=== PATIENT | female | born 1935 | race Caucasian/White ===

== ENCOUNTER 2017-12-23 12:08 | Inpatient (IN) ==
[2017-12-23] MEDS: SALINE FLUSH 10ml SYRINGE IVF PRN ×3 (12:50→23:36)
--- NOTE | 2017-12-23 13:33 | Emergency Department Report ---
General Adult HPI - General Chief complaint: Medical Emergency Stated complaint: flu like symptoms, R knee Hot, poss septic Time Seen by Provider: 12/23/17 13:33 Source: patient Mode of arrival: ambulatory Limitations: no limitations - History of Present Illness HPI narrative: Patient is an 82-year-old female presents emergency room for evaluation of weakness. 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 Dickson a few days ago, doing well postop. Patient's had one to 2 days of increasing weakness difficulty ambulating and getting around the house. Patient 's had no specific symptoms such as cough shortness of air chest pain dyspnea, does have a history of UTI. On review of systems patient does have some black tarry stool she's had for a week post starting the aspirin post surgery. Patient brought to the ER for evaluation vital signs are within defined limits - Related Data Home Medications Medication Instructions Recorded Confirmed Plavix (clopidogrel) 75 mg tablet 75 mg PO DAILY tab 09/17/17 12/23/17 Pravachol (pravastatin) 40 mg 40 mg PO DAILY tab 09/17/17 12/23/17 tablet cranberry concentrate-ascorbic 1 cap PO DAILY cap 09/17/17 12/23/17 acid 4,200 mg-20 mg capsule multivitamin tablet 1 tab PO QAM 09/17/17 12/23/17 Lisinopril [Prinivil] 10 mg PO DAILY 11/22/17 12/23/17 APAP/Diphenhydramine 500/25 1 tab PO HS 12/23/17 12/23/17 [Tylenol Pm] Previous Rx's Medication Instructions Recorded Acetaminophen [Tylenol] 650 mg PO QID tab 11/28/17 Aspirin *EC* [Ecotrin] 81 mg PO BID tab 11/28/17 Docusate Sodium [Colace] 100 mg PO BID cap 11/28/17 Milk of Magnesia [Mom] 30 ml PO DAILY udc 11/28/17 Naproxen [Aleve] 440 mg PO BID PRN tab 11/28/17 PEG 3350 17gm PACKET [Miralax] 17 gm PO DAILY packet 11/28/17 Scopolamine Patch [TRANSDERM-SCOP 1 each TRANSDERMA Q3D PRN #1 box 11/28/17 1.5 mg EQ] Tramadol [Ultram] 50 - 100 mg PO Q6H PRN #60 tab 11/28/17 Allergies Allergy/AdvReac Type Severity Reaction Status Date / Time cephalexin Allergy Unknown Rash Verified 12/23/17 13:35 ciprofloxacin Allergy Unknown Rash Verified 12/23/17 13:35 Sulfa (Sulfonamide Allergy Unknown Rash Verified 12/23/17 13:35 Antibiotics) Review of Systems Constitutional: Reports: weakness. Denies: fever, chills ENT: Denies: ear pain, throat pain Cardiovascular: Denies: chest pain, palpitations Respiratory: Denies: cough, dyspnea, wheezes Gastrointestinal: Denies: abdominal pain, nausea, vomiting Genitourinary: Denies: urgency, dysuria, frequency Musculoskeletal: Reports: back pain (chronic) Neurological: Denies: headache, weakness Psychiatric: Denies: anxiety, auditory hallucinations Endocrine: Denies: fatigue, heat or cold intolerance PFSH Patient Stated Medical History Diabetes Mellitus Type 1 No Diabetes Mellitus Type 2 No Gastroesophageal Reflux Yes: per h&p- Disease Hx Incontinence Yes: [facility] Medical History (Last Reviewed 12/19/17 @ 09:18 by Angie Ruano MA) Pneumonia (Acute Medical) Arthritis (Chronic Medical) GERD (gastroesophageal reflux disease) (Chronic Medical) High cholesterol (Chronic Medical) HTN (hypertension) (Chronic Medical) Surgical History: hysterectomy; back surgery x3, rt tka 11-27-17 Family History: Family History (Last Reviewed 12/19/17 @ 09:19 by Angie Ruano MA) Mother Arthritis - Social History Smoking status: Former smoker Substance use type: does not use Alcohol intake frequency: does not drink Physical Exam - General General appearance: alert, in no apparent distress - Eye Eye exam: Present: PERRL, EOMI - ENT ENT exam: Present: normal oropharynx, mucous membranes moist, TM's normal bilaterally - Neck Neck exam: Present: full ROM. Absent: trachea midline, tenderness - Chest Chest inspection: Present: symmetric chest wall rise. Absent: tenderness - Respiratory Respiratory exam: Present: normal lung sounds bilaterally. Absent: respiratory distress, wheezes, stridor - Cardiovascular Cardiovascular exam: Present: regular rate, normal rhythm, normal heart sounds - Abdominal Exam Abdominal exam: Present: soft, normal bowel sounds. Absent: distention, tenderness - Extremities Exam Extremities exam: Present: full ROM, tenderness, other (patient does have surgical scar on right knee, no erythema or tenderness to palpation no signs of infection) - Back Exam Back exam: Present: full ROM, tenderness. Absent: CVA tenderness (R), CVA tenderness (L), muscle spasm - Skin Skin exam: Present: warm, dry - Neurological Exam Neurological exam: Present: alert, oriented X3 - Psychiatric Psychiatric exam: Present: normal affect, normal mood Course Vital Signs Temperature 97.6 F 12/23/17 12:13 Pulse Rate 82 12/23/17 12:13 Respiratory Rate 18 12/23/17 12:13 Blood Pressure 102/51 12/23/17 12:13 Pulse Oximetry 100 12/23/17 12:13 Temperature 97.6 F 12/23/17 12:13 Pulse Rate 78 12/23/17 14:04 Respiratory Rate 18 12/23/17 13:30 Blood Pressure 113/56 12/23/17 14:04 Pulse Oximetry 99 12/23/17 14:04 Medical Decision Making - [facility] Narrative Medical decision making narrative: Patient with a hemoglobin of 7.5, does have signs of urinary tract infection. Did discuss case with Dr. Suarez, will admit to the CCU, type and screen has been done we'll give nitrofurantoin for urinary tract infection cultures pending - Medical Records Medical records reviewed: Yes: I reviewed the patient's medical records. - Lab Data Lab results reviewed: Yes: I reviewed the patient's lab results. Result diagrams: 12/23/17 12:55 12/23/17 12:55 Lab Results 12/23/17 12/23/17 12/23/17 Range/Units 12:55 12:55 13:43 WBC 7.4 (4.5-11.0) T/MM3 RBC 2.46 L (4.00-5.20) M/MM3 Hgb 7.5 L (12-16) GM/DL Hct 22.9 L (36-46) % MCV 93.1 (80-100) UM3 MCH 30.5 (26-34) UUG MCHC 32.8 (31-37) GM/DL RDW Std Deviation 49.3 (36.9-50.2) FL Plt Count 353 (130-400) T/MM3 MPV 8.6 L (9.4-12.4) UM3 Immature Gran % (Auto) 0.1 (0.0-0.5) % Neut % (Auto) 68.7 H (33-66) % Lymph % (Auto) 25.0 (23-45) % Hickman % (Auto) 6.1 (0-9.0) % Eos % (Auto) 0.0 (0-4) % Baso % (Auto) 0.1 (0-2) % Neut # (Auto) 5.1 (1.8-7.7) T/MM3 Lymph # (Auto) 1.9 (1-4.8) T/MM3 Hickman # (Auto) 0.5 (0-0.8) T/MM3 Eos # (Auto) 0.0 (0-0.5) T/MM3 Baso # (Auto) 0.0 (0-0.2) T/MM3 Abs Immat Gran (auto) 0.01 (0.00-0.03) T/MM3 Turbidity < 20 (0-20) Sodium 139 (134-144) MEQ/L Potassium 3.8 (3.6-5) MEQ/L Chloride 104 (98-107) MEQ/L Carbon Dioxide 24 (22-30) MEQ/L Anion Gap 11 (5-15) MEQ/L BUN 41.0 H (7-17) MG/DL Creatinine 0.6 L (0.7-1.2) MG/DL GFR Calculation 96 BUN/Creatinine Ratio 68 H (6-26) RATIO Glucose 117 H (65-110) MG/DL Calculated Osmolality 279 (261-280) MOSM/KG Calcium 9.5 (8.4-10.2) MG/DL Total Bilirubin 0.20 (0.20-1.30) MG/DL Icterus Index < 2 (0-7) AST 23 (14-36) U/L ALT 32 (9-52) U/L Alkaline Phosphatase 99 (38-126) U/L Creatine Kinase 33 (30-135) U/L Troponin I < 0.012 (0-0.12) ng/ml Total Protein 6.7 (6.3-8.2) G/DL Albumin 3.8 (3.5-5.0) G/DL Globulin 2.9 (2.4-3.6) G/DL Albumin/Globulin Ratio 1.3 (1.1-2.2) RATIO Specimen Hemolysis < 15 (0-25) Ur Collection Type Urine, void-cc/notcc Urine Color Yellow (YELLOW) Urine Clarity Sl cloudy Urine pH 6.0 (5.0-8.0) Ur Specific [place] 1.010 L (1.015-1.025) Urine Protein Negative (NEGATIVE) Urine Glucose (UA) Negative (NEGATIVE) Urine Ketones Negative (NEGATIVE) Urine Occult Blood Negative (NEGATIVE) Urine Nitrate Positive A (NEGATIVE) Urine Bilirubin Negative (NEGATIVE) Urine Urobilinogen 0.2 (NORMAL) EU/DL Ur Leukocyte Esterase Negative (NEGATIVE) Urine RBC 0-1 (0-3) /HPF Urine WBC 5-10 H (0-5) /HPF Urine WBC Clumps Moderate H Ur Squamous Epith Cells 0-5 Urine Bacteria 4+ H (NEGATIVE) Ur Culture Indicated? Cult reflexed &setup - EKG Data EKG #1 EKG attestation: Yes: I reviewed and interpreted this EKG. EKG shows normal: sinus rhythm Rate: normal Rhythm: NSR Bridgman/QRS: normal Interpretation: no acute changes Disposition Clinical Impression: Anemia Qualifiers: Anemia type: other cause Other causes of anemia: other cause, not classified Qualified Code(s): D64.89 - Other specified anemias Urinary tract infection Qualifiers: Urinary tract infection type: acute cystitis Hematuria presence: without hematuria Qualified Code(s): N30.00 - Acute cystitis without hematuria GI bleed Qualifiers: GI bleed type/associated pathology: unspecified gastrointestinal hemorrhage type Qualified Code(s): K92.2 - Gastrointestinal hemorrhage, unspecified Disposition: 02 To [facility] [place] Care Condition: Stable Prescriptions: No Action Acetaminophen [Tylenol] 650 mg PO QID tab Aspirin *EC* [Ecotrin] 81 mg PO BID tab Docusate Sodium [Colace] 100 mg PO BID cap Milk of Magnesia [Mom] 30 ml PO DAILY udc Naproxen [Aleve] 440 mg PO BID PRN tab PRN Reason: Pain PEG 3350 17gm PACKET [Miralax] 17 gm PO DAILY packet Scopolamine Patch [TRANSDERM-SCOP 1.5 mg EQ] 1 each TRANSDERMA Q3D PRN #1 box PRN Reason: Nausea Tramadol [Ultram] 50 - 100 mg PO Q6H PRN #60 tab PRN Reason: Pain APAP/Diphenhydramine 500/25 [Tylenol Pm] 1 tab PO HS Lisinopril [Prinivil] 10 mg PO DAILY Pravachol (pravastatin) 40 mg tablet 40 mg PO DAILY tab Plavix (clopidogrel) 75 mg tablet 75 mg PO DAILY tab cranberry concentrate-ascorbic acid 4,200 mg-20 mg capsule 1 cap PO DAILY cap multivitamin tablet 1 tab PO QAM Referrals: Lc Jaquez II, MD [Family Provider] - Time of Disposition: 14:30 - Seen By: physician
[2017-12-23] MEDS ORDERED: NS 1,000 ML IV ONE (13:42)
[2017-12-23] MEDS ORDERED: NITROFURANTOIN (MACROBID) 100 MG CAPSULE PO ONE (14:20)
[2017-12-23] MEDS ORDERED: ONDANSETRON 4 MG/2 ML INJECTION IVP PRN (14:58)
[2017-12-23] MEDS ORDERED: NS FLUSH BAG 500ml IV PRN ×3 (15:00→20:09)
[2017-12-23] MEDS ORDERED: DiphenhydrAMINE 25 MG CAPSULE PO ONE ×2 (15:45)
[2017-12-23] MEDS ORDERED: ACETAMINOPHEN 325 MG TABLET PO ONE (15:45)
--- NOTE | 2017-12-23 16:31 | History & Physical Report ---
History of Present Illness Date: 12/23/17 Chief complaint: GI bleed, weakness HPI: Kelly Vogt is a very pleasant patient of Dr. Jaquez who presented to [facility] [place] [place] ED today, 12/23/17, due to complains of significant generalized weakness and near syncope. She is seen immediately upon arrival to ICU #5 with her family present on exam. Extensive review of her prior medical records including ED visit, clinic notes, nursing notes was performed and history was additionally obtained from her family as well as from her. She reports that about 2 days ago she begin to have increasing weakness and generalized fatigue that has progressively gotten worse. She also admits to feeling very lightheaded with near-syncope since last night. She denies any recent fevers, chills or illness. No chest pain, shortness of breath, dyspnea on exertion, abdominal pain, nausea, vomiting, diarrhea or dysuria. Today her fatigue and generalized weakness became so severe that she was having extreme difficulty ambulation around her home and getting to the bathroom, which is very unusual for her. She also reports a sudden change in her stools which she states have been very dark, black and tarry over the past week. She admits to a history of constipation but denies any bright red blood in her stools. Records indicate that she underwent a successful and uncomplicated total right knee replacement on 11/27/[address] Dickson and since that time she states that she has been doing very well until about 2 days ago. Prior to her surgery, she was on Plavix for the past 5 years due to a history of possible TIAs as well as a remote history of blood clots in her legs and lung following a lung surgery 20 years ago. She also states that since her surgery, she has not taken her Plavix as directed by Dr. Dickson and instead has been taking ASA twice daily in addition to Aleeve twice a day and tylenol every 4 hours as needed for pain. She admits to frequently taking ASA 325mg twice a day instead of the ASA 81 mg as directed by Dr. Dickson, just depending on "what's handy" at home. Due to her significant weakness and fatigue, family brought her to the ED for further evaluation. Upon arrival she was noted to have a borderline low blood pressure at 102/51. She has a known history of hypertension and takes lisinopril daily. Labs were obtained and revealed significant anemia with hemoglobin at 7.5 as well as elevated BUN of 41 and was otherwise unremarkable. Hemoglobin prior to discharge after her knee replacement on 11/28/17 was 10.1. She admits to a very remote history of PUD with GERD and hiatal hernia for which she takes Prilosec daily at home. UA was concerning for acute UTI. She denies any dysuria or burning but admits to a history of frequent UTIs. While in the ED, she was given 1L NS and started on Macrobid for antimicrobial treatment of suspected urinary pathogens. Due to her symptomatic anemia with suspected GI bleed, Dr. Suarez was consulted and she was accepted into inpatient status in the ICU for further evaluation, close monitoring of hemodynamic stability and serial hemoglobins. Dr. Price was consulted for surgical evaluation and is expected to proceed with an EGD tomorrow, 12/24/17, pending improvement in her hemoglobin following blood transfusion. Review of Systems All systems PM: 10-point ROS was reviewed, no additional remarkable complaints except - Constitutional Constitutional: Present: fatigue, weakness (generalized). Absent: chills, fever (s), night sweats - EENMT Eyes: Absent: diplopia, photophobia Ears: Absent: ear pain Balance: Absent: falling to one side Nose: Present: nosebleeds (occasional) Mouth/Throat: Present: dry mouth. Absent: sore throat, changes in swallowing - Cardiovascular Cardiovascular: Present: other (near syncope, lightheadedness). Absent: chest pain, palpitations, syncope, dyspnea on exertion, orthopnea, edema Rhythm: Present: regular rhythm Vascular: Absent: pallor of an extermity, pedal edema, unilateral swelling - Respiratory Respiratory: Absent: cough, dyspnea, hemoptysis, dyspnea on exertion, wheezing, pain on inspiration, chest congestion - Gastrointestinal Gastrointestinal: Present: abdominal pain (occasional in epigastric region), change in bowel habits, change in stool character, constipation, dyspepsia, melena. Absent: dysphagia, hematemesis, hematochezia, nausea, vomiting - Genitourinary Genitourinary: Absent: dysuria, flank pain, hematuria Menstruation: post hysterectomy - Musculoskeletal Musculoskeletal: Present: muscle weakness. Absent: abnormal gait, back pain, deformity, limited range of motion - Integumentary/Breasts Integumentary: Absent: rash - Neurological Neurological: Present: dizziness (occasional ), weakness. Absent: abnormal gait , abnormal movements, abnormal speech, confusion, convulsions, focal weakness, frequent falls, headache(s), memory loss, vertigo Neurological Comments: difficulty concentrating. - Psychiatric Psychiatric: Present: abnormal sleep pattern (insomnia). Absent: behavioral changes, depression - Endocrine Endocrine: Absent: flushing, palpitations - Hematologic/Lymphatic Hematologic/Lymphatic: Absent: easy bruising - Allergic/Immunologic Allergic/Immunologic: Absent: seasonal rhinorrhea Past Medical History Clinic Medical History Hypertension. Hyperlipidemia. CAD. CHF, diastolic, grade II/IV. Osteoarthritis. GERD with hiatal hernia. Constipation. Urinary stress incontinence. Insomnia. Chronic back pain due to spinal stenosis. Remote history of blood clots in lung and legs following partial lung lobectomy - ~1997. 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 History of PUD - ~1987. History of pneumonia. History of frequent UTI. Remote history of tobacco use. Surgical History: Right total knee replacement - Dr. Dickson, 11/2017. Hysterectomy - 2009. Laminectomy x 2 - Dr. Dye, 1999; Dr. Aguirre, 2005. Partial left lobectomy, benign nodule - ~1997. Left carotid endartectomy - 2006. Removal of back spur - Dr. Zelaya, 2016. Hernia repair - 2012. Remote history of colonscopy and EGD. Family History Updates: Mother, age 82 - breast cancer, CHF, hypertension, CVA, osteoarthritis. Father, age 75 - lung cancer ( "Burnham's lung"). Sister - CVA. - Social History Smoking status: Former smoker (smoked briefly during her 20's.) Quit date: 11/12/1956 Substance use type: does not use Alcohol intake frequency: does not drink Housing: house Household members: spouse (Salvatore, 62 years.) Current occupational status: retired Does patient use chewing tobacco?: No Current residence: Apartment/Private Home Social history: PCP - Dr. Jaquez. Cardio - Dr. Kumar. Medications Home Medications Medication Instructions Recorded Confirmed Type Plavix (clopidogrel) 75 mg tablet 75 mg PO DAILY tab 09/17/17 12/23/17 History Pravachol (pravastatin) 40 mg 40 mg PO DAILY tab 09/17/17 12/23/17 History tablet cranberry concentrate-ascorbic 1 cap PO DAILY cap 09/17/17 12/23/17 History acid 4,200 mg-20 mg capsule multivitamin tablet 1 tab PO QAM 09/17/17 12/23/17 History Lisinopril [Prinivil] 10 mg PO DAILY 11/22/17 12/23/17 History APAP/Diphenhydramine 500/25 1 tab PO HS 12/23/17 12/23/17 History [Tylenol Pm] Allergies Allergy/AdvReac Type Severity Reaction Status Date / Time cephalexin Allergy Unknown Rash Verified 12/23/17 13:35 ciprofloxacin Allergy Unknown Rash Verified 12/23/17 13:35 Sulfa (Sulfonamide Allergy Unknown Rash Verified 12/23/17 13:35 Antibiotics) Exam Vital Signs: Temperature 97.6 F 12/23/17 12:13 Pulse Rate 84 12/23/17 14:45 Respiratory Rate 18 12/23/17 13:30 Blood Pressure 145/64 H 12/23/17 14:45 Pulse Oximetry 97 12/23/17 15:45 Telemetry Rhythm: Sinus Rhythm Comments: Patient is seen immediately upon her arrival to ICU #5 with her daughter, Meme , at the bedside. - Constitutional Present: no acute distress, well nourished, well developed, thin, cooperative Comments: Very pleasant and appears pale with difficulty concentrating. - Routine HEENT Exam Head: Present: normocephalic, atraumatic Eye: Present: PERRL. Absent: conjunctival icterus ENT: Present: mucous membranes dry, oropharynx clear, dentition normal - Routine Neck Exam Present: supple, full ROM, trachea midline - Routine Chest/Breast/Axilla Exam Chest wall: Absent: tenderness, pacemaker - Routine Respiratory Exam Present: CTA bilaterally. Absent: accessory muscle use, dyspnea, rales, respiratory distress, rhonchi, stridor, wheezes, crackles - Routine Cardiovascular Exam Present: RRR, S1, S2, murmur - Routine Abdominal Exam Present: soft, normoactive bowel sounds, non distended, non tender. Absent: rebound, guarding - Routine Extremities Exam Present: edema (trace), non tender, full ROM, pulses intact. Absent: calf tenderness - Routine Back/Spine/Pelvis Exam Back/Spine: Present: full ROM, kyphosis. Absent: vertebral tenderness - Routine Skin Exam Present: intact, dry, pallor, warm. Absent: jaundice Comments: afebrile. - Routine Neurological Exam Present: alert, oriented X3, moving all extremities, normal speech Questionable left facial droop noted at the mouth though cranial nerves appeared intact; some difficulty concentrating. - Routine Psychiatric Exam Present: normal affect, cooperative Results - Labs CBC & Chem 7: 12/23/17 15:24 12/23/17 12:55 Assessment and Plan (1) Anemia Problem details: symptomatic, present on admission. Current visit: Yes Status: Acute (2) Urinary tract infection Problem details: present on admission. Current visit: Yes Status: Acute (3) GI bleed Problem details: suspected based on clinincal exam and history. Current visit : Yes Status: Acute (4) History of total knee arthroplasty Problem details: 11/27/[address] Dickson. Current visit: Yes Status: Acute Assessment and Plan: Assessment: 82-year-old female patient of Dr. Olson who was admitted through the ED to Dr. Suarez with a 2-day history of significant generalized weakness and foudn to have a hemoglobin of 7.5 with suspected GI bleed following unintentional over use of aspirin, Tylenol and Aleve after right total knee replacement in November [address] Dickson. Acute Medical History Symptomatic anemia (Hgb 7.5) with near syncope, acute - present on admission. Clinical suspicion for GI bleed, acute - present on admission. UTI, acute - present on admission. Borderline hypotension, acute - present on admission. Patient Stated Past Medical History Hypertension. Hyperlipidemia. CAD. CHF, diastolic, grade II/IV. Osteoarthritis. GERD with hiatal hernia. Constipation. Urinary stress incontinence. Insomnia. Chronic back pain due to spinal stenosis. Remote history of blood clots in lung and legs following partial lung lobectomy - ~1997. 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 History of PUD - ~1987. History of pneumonia. History of frequent UTI. Remote history of tobacco use. Plan - 12/23/17 (Admission) Admit to inpatient status in the ICU under the care of Dr. Suarez. Consult Dr. Price for surgical evaluation. Anticipate EGD on 12/24/17. Clear liquid diet now and NPO after midnight in anticipation of surgical procedure on 10/23/18. Monitor closely for hemodynamic stability given significant anemia. Up in room with assist only given high fall risk. Hgb trending down. Hgb 7.5 on admission and decreased to 6.7 - monitor serial hgb closely. Will obtain Hemoccult now. Type, cross and give 2 units of PRBC now. Discussed with patient and family who consent for the procedure. SCDs for DVT prophylaxis. Protonix 40mg IV BID for GERD and GI protection as well as treatment of suspected GI bleed. UA concerning for UTI. Given the patient's extensive list of drug allergies and sensitivities, Macrobid was initiated in the ED. Will continue while awaiting culture and sensitivity. Borderline hypotension on admission (102/51). Monitor and hold home lisinopril 10mg daily if systolic <110. Continue NS 100cc/hr for hydration. Monitor closely for fluid overload - daily weights and urinary output. Encourage incentive spirometry for pulmonary toileting. Patient reported extreme sensitivities to multiple medications causing nausea and dizziness. States scopolamine patch helps with adverse symptoms. Scopolamine patch available as needed. Will continue home medications. Will hold home ASA. Patient has not been taking her home Plavix since prior to surgery in November 2017 and will continue to hold. Upon discharge, patient's care will be returned to her PCP, Dr. Jaquez. At this time, patient requests to be DNR code status. 12/23/2017-7:15 PM-Dr. Suarez I reviewed this chart, the patient history, and the CONCRETE TECHNICIAN's/PA's documented findings as above. We discussed and formulated the assessment and plan as above with the additions below. The patient was seen this evening in her room. She stated she was a little drowsy after receiving Benadryl. She is receiving her first unit of blood at this time. She states that she had had dark black tarry stools for about a week. She has had no abdominal pain. She's had no nausea or vomiting. She was feeling weak for the past couple of days and today she was so weak she didn't think she could get out of bed. She denies having any shortness of breath or chest pain but felt very lightheaded. She denies any lightheadedness now lying down. She denies any shortness of breath. A urinalysis was obtained on admission due to her weakness. She does not have any symptoms of a UTI such as burning with urination or frequency. She does not have a fever or elevated white count. She states she's had UTIs in the past and will notice burning usually. On exam the patient is mildly drowsy. She seems somewhat restless and moves her extremities frequently. She states this is normal for her. She is very pale. She is alert and oriented 3. HEENT reveals pupils to be equal, round and reactive. Sclerae are anicteric. She had some mild right eyelid drooping but she stated she thought that was from lying on that side of her face. This is now resolved. Cranial nerves II through XII are grossly intact. Oropharynx is moist. Neck is supple. Chest is clear to auscultation. Cardiovascular reveals a regular rate and rhythm. Abdomen is soft and nontender. Extremities are free of edema. Skin is pale but warm and dry. Lab work was reviewed. Impression Acute blood loss anemia GI bleed-likely upper Orthostasis and generalized weakness likely secondary to anemia Recent right total knee replacement for which she was on aspirin and Aleve History of peptic ulcer disease Chronic Diastolic heart failure Probable asymptomatic bacteriuria Plan We'll transfuse 2 units now secondary to hemoglobin of 6.7 which is symptomatic. Will stay 2 units ahead on blood. Will obtain serial hemoglobins. I did ask the nurse to call if hemoglobin is less than 8.5 on recheck. We'll have [address] SCDs for DVT prophylaxis. Protonix 80 mg IV followed by Protonix drip. Dr. Price was consulted and he has evaluated the patient and plans for EGD tomorrow. Continue off of NSAIDs. We'll check INR and PTT with next lab draw DC Macrobid at this time. The patient likely has asymptomatic bacteriuria SCDs for DVT prophylaxis DVT Prophylaxis: SCD's GI Prophylaxis: Protonix Resuscitation Status: Do Not Resuscitate - Time spent with patient Time with patient PN: 70 minutes - Physician Narrative Physician: Juliette Suarez MD Narrative: Date: 12/23/17 Time: 1603 Hospital Course Summary Disclaimer: The visit summary below is not to be considered part of the above Progress Note. Hospital Course: Plan - 12/23/17 (Admission) Admit to inpatient status in the ICU under the care of Dr. Suarez. Consult Dr. Price for surgical evaluation. Anticipate EGD on 12/24/17. Clear liquid diet now and NPO after midnight in anticipation of surgical procedure on 10/23/18. Monitor closely for hemodynamic stability given significant anemia. Up in room with assist only given high fall risk. Hgb trending down. Hgb 7.5 on admission and decreased to 6.7 - monitor serial hgb closely. Will obtain Hemoccult now. Type, cross and give 2 units of PRBC now. Discussed with patient and family who consent for the procedure. SCDs for DVT prophylaxis. Protonix 40mg IV BID for GERD and GI protection as well as treatment of suspected GI bleed. UA concerning for UTI. Given the patient's extensive list of drug allergies and sensitivities, Macrobid was initiated in the ED. Will continue while awaiting culture and sensitivity. Borderline hypotension on admission (102/51). Monitor and hold home lisinopril 10mg daily if systolic <110. Continue NS 100cc/hr for hydration. Monitor closely for fluid overload - daily weights and urinary output. Encourage incentive spirometry for pulmonary toileting. Patient reported extreme sensitivities to multiple medications causing nausea and dizziness. States scopolamine patch helps with adverse symptoms. Scopolamine patch available as needed. Will continue home medications. Will hold home ASA. Patient has not been taking her home Plavix since prior to surgery in November 2017 and will continue to hold. Upon discharge, patient's care will be returned to her PCP, Dr. Jaquez. At this time, patient requests to be DNR code status.
[2017-12-23] MEDS ORDERED: ACETAMINOPHEN 325 MG TABLET PO SCH (17:00)
[2017-12-23] MEDS ORDERED: SCOPOLAMINE 1mg/3 days PATCH TD PRN (17:10)
[2017-12-23] MEDS ORDERED: SCOPOLAMINE PATCH REMOVAL TD ONE (17:10)
[2017-12-23] MEDS ORDERED: PANTOPRAZOLE 40 MG INJECTION IVP SCH (17:15)
[2017-12-23] MEDS ORDERED: PANTOPRAZOLE 40 MG INJECTION IVP ONE (17:41)
[2017-12-23] MEDS: PANTOPRAZOLE IV 80 MG in NS 250ml 250 ML IV SCH (19:51)
[2017-12-23] MEDS ORDERED: ACETAMINOPHEN 325 MG TABLET PO PRN (20:32)
[2017-12-23 20:34] VITALS: BMI 22.4
[2017-12-23] MEDS ORDERED: NITROFURANTOIN (MACROBID) 100 MG CAPSULE PO SCH (21:00)
[2017-12-23] MEDS: NS 1,000 ML IV SCH (22:36)
[2017-12-23] MEDS: MORPHINE SULFATE 2mg INJECTION IVP PRN (23:35)
[2017-12-24] MEDS: PANTOPRAZOLE IV 80 MG in NS 250ml 250 ML IV SCH ×2 (04:49→16:03)
[2017-12-24] MEDS: NS 1,000 ML IV SCH ×3 (06:20→16:26)
[2017-12-24] MEDS ORDERED: LISINOPRIL 10 MG TABLET PO SCH (09:00)
--- NOTE | 2017-12-24 09:11 | Progress Note ---
- Date 12/24/17 Subjective: The patient was seen this morning in her room accompanied by her daughter. The patient states she wants her daughter to make medical decisions for her if she cannot make them herself. Patient states she's feeling better today. She feels stronger. She is not lightheaded this morning. She has not had any shortness of breath or chest discomfort with this episode of GI bleed. She does state that she chronically has some indigestion and feels like she cannot eat very much and relates this to a hiatal hernia. She has not lost any weight. She does complain of chronic back pain and states that she would like to get up and move around more. She does use a heating pad at home. Objective Vital signs: Temperature 98.4 F 12/24/17 08:00 Pulse Rate 73 12/24/17 08:00 Respiratory Rate 16 12/24/17 08:00 Blood Pressure 156/69 H 12/24/17 08:00 Pulse Oximetry 97 12/24/17 08:00 Height/Weight/BMI: Height 1.63 m Weight 60.3 kg Body Mass Index 22.4 Comments: Blood pressure is 144/65, heart rate 69, O2 sat is in the mid 90s on room air GEN-alert, oriented, no acute distress HEENT-sclera anicteric, oropharynx is moist NECK-supple CV-regular rate and rhythm CHEST-clear to auscultation bilaterally ABD-soft, nontender, nondistended with positive bowel sounds -no Draper EXT-no edema NEURO-no focal deficits SKIN-warm and dry without rashes Results - Labs CBC & Chem 7: 12/24/17 04:40 12/24/17 04:40 Labs: PTT and INR were normal Assessment and Plan (1) Anemia Problem details: symptomatic, present on admission. Current visit: Yes Status: Acute (2) Urinary tract infection Problem details: present on admission. Current visit: Yes Status: Acute (3) GI bleed Problem details: suspected based on clinincal exam and history. Current visit : Yes Status: Acute (4) History of total knee arthroplasty Problem details: 11/27/[address] Dickson. Current visit: Yes Status: Acute Assessment and Plan: Acute Medical History Symptomatic anemia (Hgb 7.5) with near syncope, acute - present on admission. Hemoglobin is 8.2 post 2 units of blood Clinical suspicion for upper GI bleed, acute - present on admission. Asymptomatic bacteriuria Borderline hypotension, acute - present on admission.-Resolved Patient Stated Past Medical History Hypertension. Hyperlipidemia. CAD. CHF, diastolic, grade II/IV. Osteoarthritis. GERD with hiatal hernia. Constipation. Urinary stress incontinence. Insomnia. Chronic back pain due to spinal stenosis. Remote history of blood clots in lung and legs following partial lung lobectomy - ~1997. 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 History of PUD - ~1987. History of pneumonia. History of frequent UTI. Remote history of tobacco use. Plan - 12/24/17 Overall, patient is doing well. She had 2 units of blood yesterday and is 8.2 today. Blood pressure and heart rate are normal. She feels better today and is no longer lightheaded with standing. She did not have any stools overnight. She states she gets nauseated easily with anesthetics and would like to try scopolamine patch to prevent problems with her procedure today. We'll go ahead and order scopolamine patch. Continue Protonix drip EGD later today Continue to monitor every 6 hours hemoglobin Macrobid was discontinued. She seems to have asymptomatic bacteria. Remain off of NSAIDs. Discussed with the patient's daughter and . Patient would like her daughter to make medical decisions for her she cannot make them herself. DVT Prophylaxis: SCD's GI Prophylaxis: Protonix - Time spent with patient Time with patient PN: 35 minutes - Physician Narrative Narrative: Date: 12/24/17 Time: 0906 Hospital Course Summary Disclaimer: The visit summary below is not to be considered part of the above Progress Note. Hospital Course: Plan - 12/23/17 (Admission) Admit to inpatient status in the ICU under the care of Dr. Suarez. Consult Dr. Price for surgical evaluation. Anticipate EGD on 12/24/17. Clear liquid diet now and NPO after midnight in anticipation of surgical procedure on 10/23/18. Monitor closely for hemodynamic stability given significant anemia. Up in room with assist only given high fall risk. Hgb trending down. Hgb 7.5 on admission and decreased to 6.7 - monitor serial hgb closely. Will obtain Hemoccult now. Type, cross and give 2 units of PRBC now. Discussed with patient and family who consent for the procedure. SCDs for DVT prophylaxis. Protonix 40mg IV BID for GERD and GI protection as well as treatment of suspected GI bleed. UA concerning for UTI. Given the patient's extensive list of drug allergies and sensitivities, Macrobid was initiated in the ED. Will continue while awaiting culture and sensitivity. Borderline hypotension on admission (102/51). Monitor and hold home lisinopril 10mg daily if systolic <110. Continue NS 100cc/hr for hydration. Monitor closely for fluid overload - daily weights and urinary output. Encourage incentive spirometry for pulmonary toileting. Patient reported extreme sensitivities to multiple medications causing nausea and dizziness. States scopolamine patch helps with adverse symptoms. Scopolamine patch available as needed. Will continue home medications. Will hold home ASA. Patient has not been taking her home Plavix since prior to surgery in November 2017 and will continue to hold. Upon discharge, patient's care will be returned to her PCP, Dr. Jaquez. At this time, patient requests to be DNR code status. Impression Acute blood loss anemia GI bleed-likely upper Orthostasis and generalized weakness likely secondary to anemia Recent right total knee replacement for which she was on aspirin and Aleve History of peptic ulcer disease Chronic Diastolic heart failure Probable asymptomatic bacteriuria Plan We'll transfuse 2 units now secondary to hemoglobin of 6.7 which is symptomatic. Will stay 2 units ahead on blood. Will obtain serial hemoglobins. I did ask the nurse to call if hemoglobin is less than 8.5 on recheck. We'll have [address] SCDs for DVT prophylaxis. Protonix 80 mg IV followed by Protonix drip. Dr. Price was consulted and he has evaluated the patient and plans for EGD tomorrow. Continue off of NSAIDs. We'll check INR and PTT with next lab draw DC Macrobid at this time. The patient likely has asymptomatic bacteriuria SCDs for DVT prophylaxis
[2017-12-24] MEDS ORDERED: SCOPOLAMINE 1mg/3 days PATCH TD SCH (09:15)
[2017-12-24] MEDS: PRAVASTATIN 40 MG TABLET PO SCH (10:22)
[2017-12-24] MEDS: MORPHINE SULFATE 2mg INJECTION IVP PRN (13:13)
[2017-12-24] MEDS: SALINE FLUSH 10ml SYRINGE IVF PRN ×2 (13:14→23:50)
[2017-12-24] MEDS ORDERED: LIDOCAINE VISCOUS 2% ORAL LIQUID 15ml ONE (13:18)
--- NOTE | 2017-12-24 13:24 | Anesthesia Preoperative Report ---
Anesthesia Preoperative Record - Date and Time Date: 12/24/17 Preoperative Diagnosis: GI Bleed Proposed Procedure: EGD NPO Since Date: 12/23/17 NPO Since Time: 23:00 Allergies/Adverse Reactions: Allergies Allergy/AdvReac Type Severity Reaction Status Date / Time cephalexin Allergy Unknown Rash Verified 12/23/17 13:35 ciprofloxacin Allergy Unknown Rash Verified 12/23/17 13:35 Sulfa (Sulfonamide Allergy Unknown Rash Verified 12/23/17 13:35 Antibiotics) - Vital Signs Vital Signs: Temperature 98.4 F 12/24/17 08:00 Pulse Rate 74 12/24/17 11:15 Respiratory Rate 22 12/24/17 11:15 Blood Pressure 155/68 H 12/24/17 11:00 Pulse Oximetry 98 12/24/17 11:15 Height and Weight: Height 1.63 m Weight 60.3 kg Body Mass Index 22.4 - Medications Inpatient Medications: Current Medications Acetaminophen (Tylenol) 650 mg PO PRN PRN PRN Reason: Pain Sodium Chloride (Normal Saline) 1,000 mls @ 100 mls/hr IV .Q10H DAVIDE Last Admin: 12/24/17 08:54 Dose: 100 mls/hr Pantoprazole Sodium 80 mg/ (Sodium Chloride) 250 mls @ 25 mls/hr IV .Q10H DAVIDE PRN Reason: 8 MG/HR Last Infusion: 12/24/17 07:00 Dose: 8 mg/hr, 25 mls/hr Lorazepam (Ativan Inj) 0.5 mg IVP Q6H PRN Morphine Sulfate (Morphine Sulfate Inj) 1 - 2 mg IVP Q2H PRN PRN Reason: Pain Last Admin: 12/24/17 13:13 Dose: 2 mg Ondansetron HCl (Zofran) 4 mg IVP Q6H PRN PRN Reason: Nausea Last Admin: 12/23/17 23:38 Dose: 4 mg Pravastatin Sodium (Pravachol) 40 mg PO DAILY DAVIDE Last Admin: 12/24/17 10:22 Dose: Not Given Scopolamine (Transderm-Scop Patch Removal) 1 removal TD Q3D DAVIDE Stop: 12/27/17 09:16 Sodium Chloride (Iv Flush) 10 - 80 ml IVF PRN PRN PRN Reason: Flushing Last Admin: 12/24/17 13:14 Dose: 10 ml Sodium Chloride (Normal Saline) 500 ml IV PRN PRN Sodium Chloride (Normal Saline) 500 ml IV PRN PRN Sodium Chloride (Normal Saline) 500 ml IV PRN PRN Last Admin: 12/23/17 20:15 Dose: 500 ml Home Medications: Home Medications Medication Instructions Recorded Confirmed Type Plavix (clopidogrel) 75 mg tablet 75 mg PO DAILY tab 09/17/17 12/23/17 History Pravachol (pravastatin) 40 mg 40 mg PO DAILY tab 09/17/17 12/23/17 History tablet cranberry concentrate-ascorbic 1 cap PO DAILY cap 09/17/17 12/23/17 History acid 4,200 mg-20 mg capsule multivitamin tablet 1 tab PO QAM 09/17/17 12/23/17 History Lisinopril [Prinivil] 10 mg PO DAILY 11/22/17 12/23/17 History APAP/Diphenhydramine 500/25 1 tab PO HS 12/23/17 12/23/17 History [Tylenol Pm] - Medical History Cardiovascular: Reports: Hypertension Gastrointestional: Reports: Gastroesophageal Reflux Disease (per h&p- ) Neuro/Musculoskeletal: Reports: Other (had TIA years ago, no residual problems) Renal/Endocrine: DENIES: Diabetes Mellitus Type 1, Diabetes Mellitus Type 2, Renal Failure, Dialysis, Thyroid Disease, Weight Loss, Weight Gain, Other - Surgical History HEENT Surgeries: Reports: Other (BILAT CATARACT REMOVAL) Cardiac Surgeries/Treatments: Reports: Other (carotid endardectomy ) Surgery/Treatment: DENIES: Dialysis Musculoskeletal Surgery/Tx: Reports: Orthopedic Surgery (3 back surgeries), Total Knee Replacement (11/2017) Reproductive Surgery/Treatment: Reports: Hysterectomy Anesthesia Reactions: Nausea and Vomiting Hx Family Anesthesia Reaction: No - Social History Smoking Status: Former smoker (smoked briefly during her 20's.) Hx Chewing Tobacco Use: No Quit Date: 11/12/1956 Substance Use Type: does not use Alcohol Intake Frequency: does not drink - Pertinent Findings Laboratory: CBC and BMP 12/24/17 04:40 12/24/17 04:40 BMP 12/24/17 04:40 Sodium 141 Potassium 3.7 Chloride 112 H D Carbon Dioxide 23 BUN 25.0 H Creatinine 0.6 L Glucose 88 Calcium 8.5 D EKG: Sinus Rhythm - Physical Exam Respiratory Exam: Present: lungs clear, bilateral breath sounds equal Cardiovascular Exam: Present: regular rate and rhythm, no murmur - Airway Assessment Mallampati Score: II TMD: 3 Fingerbreadths Neck Extension: good Overall Assessment: no airway concerns - ASA ASA Score: 3 - Plan Anesthesia: General TIVA, Neuroaxial Regional/Trunk Block: Spinal - Discussion Discussion: Discussed risks/options/alternatives of anesthesia and questions answered. Patient consents. Nursing pain assessment noted. Attestation Statement: Prior to the delivery of any anesthetic medication, I examined the patient, developed the plan, obtained the patient's consent and discussed the risk and benefits of the procedure with the patient/guardian. - Additional Information Seen by Anesthesia: Yes
[2017-12-24] MEDS ORDERED: PROPOFOL 20 ML ONE ×2 (13:35→13:55)
[2017-12-24] MEDS ORDERED: LIDOCAINE 2% (100mg/5mL) PF 5ml vl ONE (13:35)
--- NOTE | 2017-12-24 14:19 | Anesthesia Postoperative Note ---
- Date and Time Date: 12/24/17 Time: 14:18 - Status Patient Participated in Evaluation: Patient Participated in Person Vital Signs: Temperature 97.4 F 12/24/17 14:01 Pulse Rate 76 12/24/17 14:15 Respiratory Rate 14 12/24/17 14:15 Blood Pressure 143/68 H 12/24/17 14:15 Pulse Oximetry 98 12/24/17 14:15 Respiratory Function: Airway Patent, Regular Respirations Cardiovascular Function: Regular Pulse Mental Status: Alert and Oriented Pain Intensity: 0 Hydration: IV Infusing Complications During Recover: None Apparent - Follow-Up Instructions Instructions: Per Surgeon
--- NOTE | 2017-12-24 14:38 | General Surgery Procedure Note ---
Date of Procedure: 12/24/17 Surgeon: Dee Anesthesia: General TIVA ASA Score: 3 Postoperative Diagnosis: Gastritis with small ulcerations. Distal esophagitis with ulceration Procedure: Esophagogastroduodenoscopy with biopsies
[2017-12-24] MEDS: SUCRALFATE 1 GM TABLET PO SCH ×2 (17:35→20:09)
[2017-12-25] MEDS: MORPHINE SULFATE 2mg INJECTION IVP PRN ×3 (02:01→14:36)
[2017-12-25] MEDS: PANTOPRAZOLE IV 80 MG in NS 250ml 250 ML IV SCH ×2 (02:40→11:10)
[2017-12-25] MEDS ORDERED: CEFTRIAXONE 1 G in NS 100 ML IV SCH (04:45)
[2017-12-25] MEDS: SALINE FLUSH 10ml SYRINGE IVF PRN ×2 (04:57→14:37)
[2017-12-25] MEDS ORDERED: CEFTRIAXONE 1 G in NS 50 ML IV SCH (06:00)
[2017-12-25] MEDS: SUCRALFATE 1 GM TABLET PO SCH ×4 (06:51→22:40)
[2017-12-25] MEDS: PRAVASTATIN 40 MG TABLET PO SCH (09:31)
--- NOTE | 2017-12-25 09:46 | Operative Note ---
DATE OF OPERATION 12/24/2017 PREOPERATIVE DIAGNOSES 1. GI bleed. 2. Daily use of NSAIDs. 3. Daily use of aspirin. 4. Hiatal hernia. POSTOPERATIVE DIAGNOSES 1. Gastritis with small ulcerations - likely NSAID related. 2. Distal esophagitis with ulceration. 3. Daily use of NSAIDs. 4. Hiatal hernia. PROCEDURE Esophagogastroduodenoscopy with antral biopsy for WILMER testing, antral biopsies for histology, and distal esophageal biopsies. ANESTHESIA TIVA. ASA CLASS 3. INDICATIONS The patient is an 82-year-old female who had been admitted to the hospital after a week of melanotic stools. She had been taking two full strength aspirin daily. She had also been using significant Aleve following a recent knee replacement. She had been admitted to the hospital due to her melanotic stools and was found to be significantly anemic requiring transfusion. With her melanotic stools and NSAID use it was felt that she likely had an upper GI source for her GI bleeding. EGD was recommended to her. FINDINGS The distal stomach did show multiple small ulcerations. The duodenum was normal. There was a hiatal hernia. At the distal esophagus there was one area of ulceration but no other significant inflammation. DESCRIPTION OF PROCEDURE After informed consent was obtained the patient was taken to the endoscopy suite and placed in left lateral decubitus position. IV anesthesia was administered by the anesthesia team. A bite block was inserted followed by an Olympus video gastroscope. The gastroscope was advanced down to the third portion of the duodenum under direct vision. The scope was slowly withdrawn examining the mucosa circumferentially. In the antrum, given the ulcerations, a biopsy was taken for WILMER testing. Additional biopsies of the edges of some of the ulcerated areas were taken and were sent to Pathology. The scope was retroflexed to examine the cardiac and fundic portions of the stomach. A sliding hiatal hernia was noted. The carbon dioxide insufflation was evacuated from the stomach and the scope was withdrawn into the distal esophagus. There was one short area of a linear ulceration at the GE junction. This was biopsied along with another area of the distal esophagus. These were sent to Pathology as well. The scope was withdrawn examining the esophagus circumferentially and no other abnormalities were noted. The scope was then removed. RECOMMENDATIONS 1. Await biopsy results and WILMER test. 2. Add Carafate a.c. and h.s. 3. Continue PPI. 4. Follow hemoglobin. 5. Avoid NSAIDs. MTDD
--- NOTE | 2017-12-25 10:48 | Progress Note ---
- Date 12/25/17 Subjective: The patient was seen this morning in her room accompanied by her daughter and . Patient states she's feeling well and is hungry. She denies any chest pain. She denies any shortness of breath. She states if she gets up too fast she is a little lightheaded but it goes away quickly. She denies any abdominal pain. She had a lot of low back pain last night and was very restless. She was given morphine and Ativan. Rocephin was given for UTI. Hemoglobin is 8.1. Blood pressure and pulse has been stable. She does feel slightly confused which may be secondary to scopolamine patch. She denies any nausea. We'll go ahead and DC scopolamine patch. Objective Vital signs: Temperature 98.2 F 12/25/17 08:00 Pulse Rate 65 12/25/17 10:06 Respiratory Rate 25 H 12/25/17 10:06 Blood Pressure 164/70 H 12/25/17 10:06 Pulse Oximetry 99 12/25/17 10:06 Height/Weight/BMI: Height 1.63 m Weight 60.1 kg Body Mass Index 22.4 Comments: GEN-alert, oriented, no acute distress HEENT-sclera anicteric, oropharynx is moist NECK-supple CV-regular rate and rhythm CHEST-clear to auscultation bilaterally ABD-soft, nontender with positive bowel sounds -no Draper EXT-no edema NEURO-no focal deficits SKIN-warm and dry Results - Labs CBC & Chem 7: 12/25/17 09:23 12/25/17 05:16 Labs: Iron studies, B-12, folate are all normal Assessment and Plan (1) Anemia Problem details: symptomatic, present on admission. Current visit: Yes Status: Acute (2) Urinary tract infection Problem details: present on admission. Current visit: Yes Status: Acute (3) GI bleed Problem details: suspected based on clinincal exam and history. Current visit : Yes Status: Acute (4) History of total knee arthroplasty Problem details: 11/27/[address] Dickson. Current visit: Yes Status: Acute Assessment and Plan: Acute Medical History Symptomatic anemia (Hgb 6.7 on 12/23/2017 ) with near syncope, acute - present on admission. Hemoglobin is 8.1 today. Post 2 units of blood on admission Upper GI bleed-EGD 12/24/2017 showed gastritis with small ulcerations and distal esophagitis with ulceration. No active bleeding Acute blood loss anemia Generalized weakness and orthostasis secondary to acute blood loss anemia - resolved Escherichia coli bacteriuria versus UTI-Rocephin started 12/25/2019 Borderline hypotension, acute - present on admission.-Resolved Chronic low back pain Hypokalemia-mild Subjective mild confusion-possibly secondary to scopolamine patch, will discontinue Patient Stated Past Medical History Hypertension. Hyperlipidemia. CAD. CHF, diastolic, grade II/IV. Osteoarthritis. GERD with hiatal hernia. Constipation. Urinary stress incontinence. Insomnia. Chronic back pain due to spinal stenosis. Remote history of blood clots in lung and legs following partial lung lobectomy - ~1997. 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 History of PUD - ~1987. History of pneumonia. History of frequent UTI. Remote history of tobacco use. Plan - 12/24/17 Overall, the patient is doing well. Hemoglobin is 8.1. Vital signs are stable. BUN has normalized. She has had no further bowel movements. Vital signs have been stable. Discussed with Dr. Price today and we will transfer the patient to the floor. He did start a regular diet this morning. We'll replace potassium orally Increase activity as tolerated. Consult PT and OT. DC scopolamine patch in case this is causing some of her subjective confusion Place lidocaine patch for low back pain. Change Tylenol to scheduled. Rocephin started this morning for UTI, will change to nitrofurantoin due to history of allergy with cephalexin Recheck hemoglobin at 4:00 this afternoon. Age Protonix to oral. Continue Carafate. Possible dismissal tomorrow. Dr. Price's office will call her in 3 weeks to discuss timing of colonoscopy. She will need to remain off of aspirin and Plavix for at least one month and then her primary care physician can reevaluate whether or not one or both of these should be started. DVT Prophylaxis: SCD's GI Prophylaxis: Protonix Resuscitation Status: Do Not Resuscitate - Physician Narrative Narrative: Date: 12/25/17 Time: 1042 Hospital Course Summary Disclaimer: The visit summary below is not to be considered part of the above Progress Note. Hospital Course: Plan - 12/23/17 (Admission) Admit to inpatient status in the ICU under the care of Dr. Suarez. Consult Dr. Price for surgical evaluation. Anticipate EGD on 12/24/17. Clear liquid diet now and NPO after midnight in anticipation of surgical procedure on 10/23/18. Monitor closely for hemodynamic stability given significant anemia. Up in room with assist only given high fall risk. Hgb trending down. Hgb 7.5 on admission and decreased to 6.7 - monitor serial hgb closely. Will obtain Hemoccult now. Type, cross and give 2 units of PRBC now. Discussed with patient and family who consent for the procedure. SCDs for DVT prophylaxis. Protonix 40mg IV BID for GERD and GI protection as well as treatment of suspected GI bleed. UA concerning for UTI. Given the patient's extensive list of drug allergies and sensitivities, Macrobid was initiated in the ED. Will continue while awaiting culture and sensitivity. Borderline hypotension on admission (102/51). Monitor and hold home lisinopril 10mg daily if systolic <110. Continue NS 100cc/hr for hydration. Monitor closely for fluid overload - daily weights and urinary output. Encourage incentive spirometry for pulmonary toileting. Patient reported extreme sensitivities to multiple medications causing nausea and dizziness. States scopolamine patch helps with adverse symptoms. Scopolamine patch available as needed. Will continue home medications. Will hold home ASA. Patient has not been taking her home Plavix since prior to surgery in November 2017 and will continue to hold. Upon discharge, patient's care will be returned to her PCP, Dr. Jaquez. At this time, patient requests to be DNR code status. Impression Acute blood loss anemia GI bleed-likely upper Orthostasis and generalized weakness likely secondary to anemia Recent right total knee replacement for which she was on aspirin and Aleve History of peptic ulcer disease Chronic Diastolic heart failure Probable asymptomatic bacteriuria Plan We'll transfuse 2 units now secondary to hemoglobin of 6.7 which is symptomatic. Will stay 2 units ahead on blood. Will obtain serial hemoglobins. I did ask the nurse to call if hemoglobin is less than 8.5 on recheck. We'll have [address] SCDs for DVT prophylaxis. Protonix 80 mg IV followed by Protonix drip. Dr. Price was consulted and he has evaluated the patient and plans for EGD tomorrow. Continue off of NSAIDs. We'll check INR and PTT with next lab draw DC Aniad at this time. The patient likely has asymptomatic bacteriuria SCDs for DVT prophylaxis
[2017-12-25] MEDS: ACETAMINOPHEN 325 MG TABLET PO SCH ×3 (12:15→20:57)
[2017-12-25] MEDS: LIDOCAINE 5% PATCH TOP SCH (12:15)
--- NOTE | 2017-12-25 16:10 | Consultation ---
DATE OF CONSULTATION 12/23/2017 CONSULTING PHYSICIAN Dex Price MD REQUESTING PHYSICIAN Dr. Suarez. REASON FOR CONSULTATION GI bleeding. IMPRESSION 1. GI bleed with melanotic stools - likely upper GI bleed. 2. Daily use of NSAIDs. 3. Daily use of aspirin. 4. Acute blood loss anemia related to GI bleed. RECOMMENDATIONS 1. I do agree with transfusion as necessary to maintain a hemoglobin above 7. 2. I think that Kelly will need an EGD performed most likely tomorrow to investigate for a potential source for GI bleeding such as an NSAID-related ulcer. 3. I do not think that she is in a current condition to undergo bowel prep for repeat screening colonoscopy. I do not think that her lower GI tract is the source of her blood loss. 4. I agree with Protonix. 5. Hold aspirin. HISTORY OF PRESENT ILLNESS Kelly is an 82-year-old female who had a right total knee arthroplasty on [address] Dickson. Postoperatively she was supposed to be taking an 81-mg aspirin twice a day for six weeks. The patient had run out of 81-mg aspirin and started taking a full-strength aspirin twice a day. She had also been using Aleve at 400 mg twice a day. Her discharge instructions indicated that she should be on Plavix but the patient has not been taking her Plavix since her knee operation. About a week ago she started noticing black stools. She also said that she had been having nosebleeds with every time that she was blowing her nose. This was occurring about three to four times per day. She did report some pain that she said feels like a burn in the upper abdomen. She rated it 5 to 6 out of 10 in severity and said that the pain comes and goes. She denied any dysphagia. She had been having increasing weakness and generalized fatigue. She had also had near-syncope. She does have a history of peptic ulcer disease and gastroesophageal reflux disease in the distant past along with a hiatal hernia. Her hemoglobin in the emergency department had been 7.5 and a recheck on admission was 6.7. PAST MEDICAL HISTORY 1. Hypertension 2. Hyperlipidemia. 3. Coronary artery disease. 4. Congestive heart failure - diastolic 3. Osteoarthritis. 4. Gastroesophageal reflux disease. 5. Hiatal hernia. 6. Constipation. 7. Urinary stress incontinence. 8. Insomnia. 9. Chronic back pain due to spinal stenosis. 10. 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 11. TIA - 10/2016. 12. Peptic ulcer disease - approximately 1987. 13. Pneumonia. 14. Frequent urinary tract infections. 15. Prior smoker. PAST SURGICAL HISTORY 1. Colonoscopy - greater than ten years ago. 2. Vaginal hysterectomy - 12/2009. 3. Laminectomy - [address] Frye. 4. Laminectomy - [address] Guerrero. 5. Left partial lung resection - approximately 1997. Pathology was reported as a benign process. 6. Left carotid endarterectomy - 2006. 7. Right inguinal hernia repair - 02/20/[address] Baer. 8. Right total knee arthroplasty - 11/27/[address] Dickson. ALLERGIES Keflex, Cipro, sulfa. MEDICATIONS The patient's home medications were reviewed. See the admission medical reconciliation. She stated that she was not taking Plavix and was taking a 325- mg aspirin twice a day. SOCIAL HISTORY The patient is to her , Salvatore. She has two daughters (Meme and Letitia). She is a former smoker. 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 She denies alcohol or illicit drug use. FAMILY HISTORY Mother ( at 82 from pneumonia) - arthritis, breast cancer, TIAs. Father ( at 74) - "sanders's lung." REVIEW OF SYSTEMS Ten-point review of systems was negative except for History of Present Illness and the following: GENITOURINARY: She gets frequent urinary tract infections. HEMATOLOGIC: She is using daily aspirin with 325 mg b.i.d. She is not on Plavix. She does have a history of DVT and PE following a prior lung procedure. PHYSICAL EXAMINATION VITAL SIGNS: Temperature 97.6, pulse 84, blood pressure 145/64, respiratory rate 18, oxygen saturation 97%. GENERAL: The patient is awake and alert, in no acute distress. HEENT: Sclerae clear. Extraocular muscles intact. NECK: Supple with a midline trachea. No lymphadenopathy or thyromegaly are noted. She does have a left carotid endarterectomy incision that is well healed. HEART: Regular rate and rhythm. LUNGS: Clear to auscultation bilaterally. ABDOMEN: Soft, nontender, nondistended. There are no masses, fluid, organomegaly, guarding or rebound noted. EXTREMITIES: No clubbing, cyanosis or edema. NEUROLOGIC: Cranial nerves II-XII are grossly intact. PSYCHIATRIC: Normal mood and affect. LABORATORY DATA See History of Present Illness. PATIENT EDUCATION The details, risks and benefits of EGD were discussed with the patient, her daughter, and her . The discussion included but was not limited to bleeding, perforation requiring surgical repair, aspiration, and complications of anesthesia. I also discussed why I did not feel that colonoscopy was indicated currently given the need for a bowel prep and her low hemoglobin. Following discussion she was in agreement with proceeding with an esophagogastroduodenoscopy assuming her blood count was improved tomorrow. MTDD
--- NOTE | 2017-12-25 17:10 | Progress Note ---
DATE OF VISIT 12/25/2017 REASON FOR VISIT Follow GI bleed. SUBJECTIVE Kelly has done well. She is feeling better. She has been tolerating her clear liquid diet. Her nurse reported no evidence of any ongoing GI bleeding. OBJECTIVE VITAL SIGNS: Temperature 98.2, pulse 63, blood pressure 165/69, respiratory rate 32, oxygen saturation 99% on room air. GENERAL: The patient is awake and alert, in no acute distress. She is seated on the side of the bed. She is in no acute distress. ABDOMEN: Soft, nontender, nondistended. LABORATORY DATA Hemoglobin was 8.4 this morning and a recheck was 8.1. IMPRESSION 1. Gastritis with small ulcerations (likely NSAID-related). 2. Acute blood loss anemia related to GI bleeding - stable. 3. GI bleeding related to gastric ulcers. 4. Hiatal hernia. 5. Due for repeat screening colonoscopy. PLAN 1. I do think that Kelly is doing well enough to be advanced to a regular- consistency diet since her hemoglobin has improved from yesterday afternoon. 2. I think she will need to be off of her aspirin and Plavix for a month before reinitiating treatment. I did discuss that I felt, given her recent bleeding, that the risks of aspirin or Plavix would be higher than the potential benefits for decrease of blood clots or strokes. 3. I do think she should have an outpatient colonoscopy since it has been over ten years from her last procedure. My office can contact her in about three weeks to see if a colonoscopy could be scheduled prior to her reinitiation of Plavix. This would then not require interruption of her Plavix therapy in the future. If she is not feeling well then her colonoscopy could be delayed. 4. Continue PPI and Carafate for two months to fully treat her ulcerated areas. DIANA
[2017-12-25] MEDS: PANTOPRAZOLE 40 MG TABLET PO SCH (18:23)
[2017-12-25] MEDS: NITROFURANTOIN (MACROBID) 100 MG CAPSULE PO SCH (18:23)
[2017-12-25] MEDS ORDERED: LIDOCAINE PATCH REMOVAL TOP SCH (21:00)
[2017-12-26] MEDS: PANTOPRAZOLE 40 MG TABLET PO SCH (06:31)
[2017-12-26] MEDS: SUCRALFATE 1 GM TABLET PO SCH ×2 (06:31→11:55)
[2017-12-26 07:53] VITALS: TEMP 97.5
[2017-12-26] MEDS: NITROFURANTOIN (MACROBID) 100 MG CAPSULE PO SCH (09:42)
[2017-12-26] MEDS: SALINE FLUSH 10ml SYRINGE IVF PRN (09:43)
[2017-12-26] MEDS: PRAVASTATIN 40 MG TABLET PO SCH (09:43)
[2017-12-26] MEDS: ACETAMINOPHEN 325 MG TABLET PO SCH ×2 (09:43→13:37)
[2017-12-26] MEDS: LIDOCAINE 5% PATCH TOP SCH ×2 (11:28→13:41)
[2017-12-26 11:51] VITALS: BP 167/86; PULSE 65; RESP 17; O2SAT 98
--- NOTE | 2017-12-26 13:50 | Discharge Summary ---
Discharge Information Date of admission: 12/23/17 14:23 Anticipated date of discharge: 12/26/17 Attending Physician: Juliette Suarez MD Primary care physician: Lc Jaquez II, MD Consults: Dr. Price-General Surgeon - Discharge Diagnosis (1) Anemia Status: Acute (2) Urinary tract infection Status: Acute (3) GI bleed Status: Acute (4) History of total knee arthroplasty Status: Acute Symptomatic anemia (Hgb 6.7 on 12/23/2017 ) with near syncope, acute - present on admission. Hemoglobin is 8.1 today. Post 2 units of blood on admission Upper GI bleed-EGD 12/24/2017 showed gastritis with small ulcerations and distal esophagitis with ulceration. No active bleeding Acute blood loss anemia Generalized weakness and orthostasis secondary to acute blood loss anemia - resolved Escherichia coli bacteriuria versus UTI-Rocephin started 12/25/2019 Borderline hypotension, acute - present on admission.-Resolved Chronic low back pain Hypokalemia-mild Subjective mild confusion-possibly secondary to scopolamine patch, will discontinue - Procedures Procedures: 12/24/17-PROCEDURE- Esophagogastroduodenoscopy with antral biopsy for WILMER testing , antral biopsies for histology, and distal esophageal biopsies. Dr. Price - Laboratory Labs: 12/26/17 03:58 12/26/17 03:58 - Microbiology Microbiology 12/24/17 13:45 Gastric Biopsy Helicobacter pylori Rapid Urease - Final - Radiology Radiology: None - Pathology 12/24/17-gastric biopsy revealing gastric mucosa with mild superficial chronic gastritis and reactive admit mucosal. No neoplasm. History of Present Illness HPI: Kelly Vogt is a very pleasant patient of Dr. Jaquez who presented to [facility] ED today, 12/23/17, due to complains of significant generalized weakness and near syncope. She is seen immediately upon arrival to ICU #5 with her family present on exam. Extensive review of her prior medical records including ED visit, clinic notes, nursing notes was performed and history was additionally obtained from her family as well as from her. She reports that about 2 days ago she begin to have increasing weakness and generalized fatigue that has progressively gotten worse. She also admits to feeling very lightheaded with near-syncope since last night. She denies any recent fevers, chills or illness. No chest pain, shortness of breath, dyspnea on exertion, abdominal pain, nausea, vomiting, diarrhea or dysuria. Today her fatigue and generalized weakness became so severe that she was having extreme difficulty ambulation around her home and getting to the bathroom, which is very unusual for her. She also reports a sudden change in her stools which she states have been very dark, black and tarry over the past week. She admits to a history of constipation but denies any bright red blood in her stools. Records indicate that she underwent a successful and uncomplicated total right knee replacement on 11/27/[address] Dickson and since that time she states that she has been doing very well until about 2 days ago. Prior to her surgery, she was on Plavix for the past 5 years due to a history of possible TIAs as well as a remote history of blood clots in her legs and lung following a lung surgery 20 years ago. She also states that since her surgery, she has not taken her Plavix as directed by Dr. Dickson and instead has been taking ASA twice daily in addition to Aleeve twice a day and tylenol every 4 hours as needed for pain. She admits to frequently taking ASA 325mg twice a day instead of the ASA 81 mg as directed by Dr. Dickson, just depending on "what's handy" at home. Due to her significant weakness and fatigue, family brought her to the ED for further evaluation. Upon arrival she was noted to have a borderline low blood pressure at 102/51. She has a known history of hypertension and takes lisinopril daily. Labs were obtained and revealed significant anemia with hemoglobin at 7.5 as well as elevated BUN of 41 and was otherwise unremarkable. Hemoglobin prior to discharge after her knee replacement on 11/28/17 was 10.1. She admits to a very remote history of PUD with GERD and hiatal hernia for which she takes Prilosec daily at home. UA was concerning for acute UTI. She denies any dysuria or burning but admits to a history of frequent UTIs. While in the ED, she was given 1L NS and started on Macrobid for antimicrobial treatment of suspected urinary pathogens. Due to her symptomatic anemia with suspected GI bleed, Dr. Suarez was consulted and she was accepted into inpatient status in the ICU for further evaluation, close monitoring of hemodynamic stability and serial hemoglobins. Dr. Price was consulted for surgical evaluation and is expected to proceed with an EGD tomorrow, 12/24/17, pending improvement in her hemoglobin following blood transfusion. Objective Vital signs: Temperature 97.5 F 12/26/17 07:50 Pulse Rate 65 12/26/17 11:47 Respiratory Rate 17 12/26/17 11:47 Blood Pressure 167/86 H 12/26/17 11:47 Pulse Oximetry 98 12/26/17 11:47 Height/Weight/BMI: Height 1.63 m Weight 59.2 kg Body Mass Index 22.4 - Constitutional Present: well nourished, well developed - Routine HEENT Exam Eye: Present: EOMI ENT: Present: mucous membranes moist, dentition normal - Routine Respiratory Exam Present: CTA bilaterally. Absent: wheezes - Routine Cardiovascular Exam Present: RRR, S1, S2. Absent: murmur - Routine Abdominal Exam Present: soft, normoactive bowel sounds, non distended. Absent: tenderness - Routine Extremities Exam Present: full ROM, normal capillary refill - Routine Back/Spine/Pelvis Exam Back/Spine: Present: full ROM - Routine Skin Exam Present: intact, dry, warm - Routine Neurological Exam Present: alert, oriented X3, CN II-XII intact - Routine Lymphatic Exam Lymphatic: Absent: adenopathy - Routine Psychiatric Exam Present: normal affect, cooperative Hospital Course This is a general summary of the patient's hospital course. For more details refer to the complete medical record. Hospital course: Plan - 12/23/17 (Admission) Admit to inpatient status in the ICU under the care of Dr. Suarez. Consult Dr. Price for surgical evaluation. Anticipate EGD on 12/24/17. Clear liquid diet now and NPO after midnight in anticipation of surgical procedure on 10/23/18. Monitor closely for hemodynamic stability given significant anemia. Up in room with assist only given high fall risk. Hgb trending down. Hgb 7.5 on admission and decreased to 6.7 - monitor serial hgb closely. Will obtain Hemoccult now. Type, cross and give 2 units of PRBC now. Discussed with patient and family who consent for the procedure. SCDs for DVT prophylaxis. Protonix 40mg IV BID for GERD and GI protection as well as treatment of suspected GI bleed. UA concerning for UTI. Given the patient's extensive list of drug allergies and sensitivities, Macrobid was initiated in the ED. Will continue while awaiting culture and sensitivity. Borderline hypotension on admission (102/51). Monitor and hold home lisinopril 10mg daily if systolic <110. Continue NS 100cc/hr for hydration. Monitor closely for fluid overload - daily weights and urinary output. Encourage incentive spirometry for pulmonary toileting. Patient reported extreme sensitivities to multiple medications causing nausea and dizziness. States scopolamine patch helps with adverse symptoms. Scopolamine patch available as needed. Will continue home medications. Will hold home ASA. Patient has not been taking her home Plavix since prior to surgery in November 2017 and will continue to hold. Upon discharge, patient's care will be returned to her PCP, Dr. Jaquez. At this time, patient requests to be DNR code status. 12/24 Overall, patient is doing well. She had 2 units of blood yesterday and is 8.2 today. Blood pressure and heart rate are normal. She feels better today and is no longer lightheaded with standing. She did not have any stools overnight. She states she gets nauseated easily with anesthetics and would like to try scopolamine patch to prevent problems with her procedure today. We'll go ahead and order scopolamine patch. Continue Protonix drip EGD later today Continue to monitor every 6 hours hemoglobin Macrobid was discontinued. She seems to have asymptomatic bacteria. Remain off of NSAIDs. Discussed with the patient's daughter and . Patient would like her daughter to make medical decisions for her she cannot make them herself. 12/25 Overall, the patient is doing well. Hemoglobin is 8.1. Vital signs are stable. BUN has normalized. She has had no further bowel movements. Vital signs have been stable. Discussed with Dr. Price today and we will transfer the patient to the floor. He did start a regular diet this morning. We'll replace potassium orally Increase activity as tolerated. Consult PT and OT. DC scopolamine patch in case this is causing some of her subjective confusion Place lidocaine patch for low back pain. Change Tylenol to scheduled. Rocephin started this morning for UTI, will change to nitrofurantoin due to history of allergy with cephalexin Recheck hemoglobin at 4:00 this afternoon. Change Protonix to oral. Continue Carafate. Possible dismissal tomorrow. Dr. Price's office will call her in 3 weeks to discuss timing of colonoscopy. She will need to remain off of aspirin and Plavix for at least one month and then her primary care physician can reevaluate whether or not one or both of these should be started. 12/26/17-discharge Patient is seen and examined prior to discharge. She is alert, oriented and pleasant. States that she is feeling great ready to be discharged home and will be accompanied by her and daughter. We reviewed in detail discharge medications and plans. Patient is to continue to stop aspirin and Plavix for at least a month. This will need to be discussed further with Dr. Jaquez her primary care provider. Patient will be on Prilosec twice a day and Carafate with meals and at bedtime for at least 2 months for GI protection. Patient also will continue on Macrobid for treatment of acute urinary tract infection. She has 4 additional days remaining. Discussed her chronic back pain. She will continue to utilize only aspirin as well as topical lidocaine patch. Reviewed in detail the importance of not utilizing Aleve, ibuprofen or other NSAIDs at this might add to her gastric irritation and cause further bleeding. Planning to schedule her own appointment for follow-up with Dr. Jaquez in 1 week. She is also informed that Dr. Murillo office will contact her for further outpatient follow-up. She understands all of these discharge instructions. All questions answered appropriately. Time spent with patient: greater than 35 minutes Discharge Plan - Discharge Disposition Discharge Date: 12/26/17 Disposition: 01 Discharged Home, Self-Care *Condition: Stable Reason For Visit (Visit label in EMR): GI Bleed, UTI, Anemia - Discharge Medications *Discharge Medications: New Nitrofurantoin. [Macrobid] 100 mg PO BIDWM #8 cap Pantoprazole Tab [Protonix Tab] 40 mg PO ACBID #60 tab Lidocaine 5% Patch [Lidoderm] 1 patch TOP DAILY #30 patch Sucralfate [Carafate] 1 gm PO ACHS #120 tab Continue Acetaminophen [Tylenol] 650 mg PO QID tab Docusate Sodium [Colace] 100 mg PO BID cap Milk of Magnesia [Mom] 30 ml PO DAILY udc PEG 3350 17gm PACKET [Miralax] 17 gm PO DAILY packet Scopolamine Patch [TRANSDERM-SCOP 1.5 mg EQ] 1 each TRANSDERMA Q3D PRN #1 box PRN Reason: Nausea APAP/Diphenhydramine 500/25 [Tylenol Pm] 1 tab PO HS Lisinopril [Prinivil] 10 mg PO DAILY Pravachol (pravastatin) 40 mg tablet 40 mg PO DAILY tab cranberry concentrate-ascorbic acid 4,200 mg-20 mg capsule 1 cap PO DAILY cap multivitamin tablet 1 tab PO QAM Discontinued Aspirin *EC* [Ecotrin] 81 mg PO BID tab Naproxen [Aleve] 440 mg PO BID PRN tab PRN Reason: Pain Tramadol [Ultram] 50 - 100 mg PO Q6H PRN #60 tab PRN Reason: Pain Plavix (clopidogrel) 75 mg tablet 75 mg PO DAILY tab - Discharge Packet/Instructions *Diet: Regular diet *Activity: Activity as tolerated, Use walker *Pain Management/Treatment: Tylenol and Lidoderm patch for pain *Wound Care: None Additional Instructions: Do not take aspirin or Plavix for 1 month. Will need to talk with Dr. Jaquez about resuming this. New medications include- Carafate with meals and at bedtime as well as Protonix twice a day for stomach protection for the next 2 months. Use Tylenol and Lidoderm patch for pain. Avoid Aleve, ibuprofen or all NSAIDs. Take Macrobid twice a day for 4 additional days for treatment of urinary tract infection *Notify Physician if: Black or blood in her stools. Lightheadedness or dizziness. Chest pain or shortness of breath, or other concerning symptoms *During Business Hours Contact: Contact primary care provider, Dr. Jaquez *After Business Hours Contact: Page Dr. Jaquez or on-call covering physician *Pending Lab/Results: No Pending Lab - Referrals/Follow Up *Referrals/Follow Up: Lc Jaquez II, MD [Family Provider] - (Please call and make your own appointment with Dr. Jaquez for 1 week) Dex Price MD [Physician] - (Dr. Price's office will contact you to schedule a follow-up appointment) - Patient Handouts Patient Handouts: Gastrointestinal Bleeding (IP), Urinary Tract Infection in Women (DC) - Dismissal Complete Discharge Instructions are:: Complete Physician Narrative - Narrative Physician: Juliette Suarez MD Attestation Narrative: Date: 12/26/17 Time: 2:50 PM-Dr. Suarez I reviewed this chart, the patient history, and the TOP CAR[employer]ER's/PA's documented findings as above. We discussed and formulated the assessment and plan as above with the additions below. The patient was seen this afternoon in her room accompanied by her family. She states she's feeling well today and is ready to go home. She is up walking in her room without any lightheadedness or shortness of breath. She has not had any chest pain with this episode of GI bleeding. She is eating and drinking well. On exam she is alert and oriented and in no acute distress. Chest is clear to auscultation. Cardiovascular reveals a regular rate and rhythm. Abdomen is soft and nontender. Extremities are free of edema. We'll plan to dismiss to home with follow-up with Dr. Jaquez. She will need lab work in about 1 week to follow-up her hemoglobin. In one month, Dr. Jaquez can decide when and if to restart either her aspirin and/or Plavix. She will follow-up in 3-[address] Price to discuss possible colonoscopy. We'll notify Dr. Jaquez hospital course and of dismissal plans
[2017-12-27] MEDS ORDERED: SCOPOLAMINE PATCH REMOVAL TD SCH (09:15)
== END 2017-12-26 14:15 | disposition home or self-care (01) | DRG 378 ==
LOC: ED 12:08 → CCU 14:23 → MED 12-25 11:45
PROVIDERS: ADMIT Internal Medicine; ATTEND Internal Medicine
PROC: END.EGD (2017-12-24 11:00)